=== PATIENT | male | born 1980 | race Caucasian/White ===

== ENCOUNTER 2020-10-21 07:39 | Emergency (ER) | payer OTHER ==
[2020-10-21] MEDS ORDERED: Morphine 4 MG/ML VIAL ONE ×2 (08:54→12:24)
== END 2020-10-21 14:53 | disposition short-term general hospital (02) ==
LOC: NAV ERS 07:39
DX: M54.5 Low back pain (principal); E11.40 Type 2 diabetes mellitus with diabetic neuropathy, unspecified; E78.5 Hyperlipidemia, unspecified; I10 Essential (primary) hypertension; J45.909 Unspecified asthma, uncomplicated; Z79.84 Long term (current) use of oral hypoglycemic drugs; Z79.899 Other long term (current) drug therapy
CPT/HCPCS: 96374; 96376; J2270